=== PATIENT | female | born 1945 | race Caucasian/White ===

== ENCOUNTER 2017-04-04 15:01 | Inpatient (IN) | payer OTHER, MEDICAID ==
[~2017-04-04] VITALS: Ht 162.6 cm; Wt 69.0 kg
[~2017-04-04 15:01] MED LIST: ASPIR 8181 MG PO; ATIVAN0.5 M1 PO; BENECAR; BENICAR HCT1 TA1 PO; CILOSTAZOL100 M1; CILOSTAZOL100 M1 PO; CLOPIDOGREL75 M1 PO; COL100 PO; COUMADIN1 MG; COUMADIN5 MG; ENOXAPARIN60 MG/0.6 SC; LAC PO; LANTUS SOLOS100 U/M1 SC; LEVAQUIN750 MG PO; LEVOFLOXACIN500 M1 PO; LIPI10 PO; LYRICA200 MG PO; LYRICA75 M1 PO; MAC100 PO; MOTRIN800 MG PO; NATURAL IRON65 MG; NORCO1 TA1 PO; NORCO1 TA2 PO; NORCO1 TAB; NOVI SQ; NOVOLOG FLEX100 U/M1 SC; OMEPRAZOLE DR20 M1; OMEPRAZOLE DR20 M1 PO; OXYBUTYNIN5 M1; REG10I IV; REG10I PO; REQUIP0.25 MG PO; REQUIP0.5 MG; REQUIP0.5 MG PO; TOPROL XL25 MG PO; TRAZODONE50 M1; TRAZODONE50 M1 PO
--- NOTE | 2017-04-04 16:31 | NUR ---
DR MEYER AT BEDSIDE FOR MSE
[2017-04-04 17:36] LABS: CALCIUM 9.4 mg/dL (8.5-10.1); CARBON DIOXIDE 25.5 mmol/L (21-32); CHLORIDE SERUM 97 mmol/L (98-107); CREATININE SERUM 1.4 mg/dL (0.6-1.0); GLUCOSE SERUM 407 mg/dL (74-106); POTASSIUM SERUM 4.4 mmol/L (3.5-5.1); SODIUM SERUM 132 mmol/L (136-145)
[2017-04-04 17:44] LABS: microscopic required? YES; urine erythrocyte TRACE (NEGATIVE)
[2017-04-04 17:50] LABS: BASOPHIL % 0.5 % (0-2); PLATELET COUNT 236 x10^3mcL (130-400); RED CELL DISTRIBUTION WIDTH 13.3 % (11.5-14.5)
[2017-04-04 17:52] LABS: ALBUMIN 3.7 g/dL (3.4-5.0); ALKALINE PHOSPHATASE 89 U/L (46-116); ALT/SGPT 18 U/L (14-59); AST/SGOT 13 U/L (15-37); BILIRUBIN TOTAL 0.48 mg/dL (0.20-1.00); TOTAL PROTEIN, SERUM 7.6 g/dL (6.4-8.2)
--- NOTE | 2017-04-04 19:09 | NUR ---
REPORT GIVEN TO TONYA ALEXANDRE RESUMING CARE OF PT AT THIS TIME
--- NOTE | 2017-04-04 19:14 | NUR ---
RECEIVED REPORT FROM JUAN MANUEL ALEXANDRE. PT RESTING IN BED IN A POSITION OF COMFORT REPORTING CHRONIC BACK PAIN IS 9/10 AT THIS TIME. REQUESTING SOCKS TO USE RESTROOM. RESP E/U, NO DISTRESS NOTED. PT AMBULATES WITH STEADY GAIT TO RESTROOM.
--- NOTE | 2017-04-04 21:17 | NUR ---
FAMILY TO BRING MED LIST BACK FOR MED RECONCILIATION.
--- NOTE | 2017-04-04 21:50 | NUR ---
REPORT CALLED TO AKI ALEXANDRE TO ASSUME CARE OF PT POST TRANSFER TO TELE UNIT.
[2017-04-04 21:53] LABS: AMPHETAMINE QUAL UR NONE DETECTED (NEG <=1000)
[2017-04-04 21:59] LABS: T3 TOTAL 0.95 ng/mL
[2017-04-04 22:00] LABS: FREE T4 1.26 ng/dL (0.76-1.46); FREE THYROXINE INDEX 4.1 ug/dL (1.4-4.5); T4(THYROXINE) 10.8 ug/dL (4.7-13.3)
--- NOTE | 2017-04-04 22:09 | NUR ---
REC'D PT FROM ER VIA [facility]. PT IS AAOX4. C/O DIZZINESS AND 7/10 HEADACHE. TELE #16 SR. RESP EVEN AND UNLABORED. NO SOB NOTED. TRACE EDEMA NOTED TO BLE. PT C/O 9/10 UPPER BACK PAIN. IV NOTED TO RAC. INTACT AND PATENT. ORIENTED PT TO CALL LIGHT. BED IN LOWEST POSITION. WILL ENDORSE TO PRIMARY RN.
[2017-04-04 22:13] LABS: CHOLESTEROL/HDL RATIO 2.7; MAGNESIUM 1.8 mg/dL (1.8-2.4); PHOSPHOROUS 3.9 mg/dL (2.5-4.9)
[2017-04-04 22:20] VITALS: BP 155/61
--- NOTE | 2017-04-04 22:50 | NUR ---
REC'D REPORT FROM IZABELA ALEXANDRE. PT AAOX4, SPEECH CLEAR, FOLLOWS COMMANDS. TELE16. DENIES CP, DIZZINESS, OR PALPITATIONS. NO SIGNS OF DISTRESS NOTED. BREATHING EVEN/UNLABORED ON RA. TRACE EDEMA BLE. DENIES ABD PAIN, TENDERNESS, OR N/V. VOIDING FREELY. GEN WEAKNESS. AMB WITH WALKER FOR FAR DISTANCES. SKIN INTACT. IV TO RAC. NS 500 ML BOLUS INFUSING. LEVAQUIN COMPLETED. C/O BACK PAIN 01/05. DID NOT WANT NORCO BC IT UPSETS HER STOMACH. DR. RANDOLPH AT BEDSIDE TO ORDER TORADOL. BS 405. TO COVER PER SLIDING SCALE WITH REG INSULIN PER DR. RANDOLPH. SHE IS TO ENTER ORDERS. HOME MEDS AT BEDSIDE. PT INFORMED NOT TO TAKE ANY MEDS ON HER OWN. MED STAFF TO GIVE MEDICATIONS ONLY. PT VERBALIZED UNDERSTANDING. ORIENTED TO DEVICES AND SURROUNDINGS. CALL LIGHT WITHIN REACH, BED AT LOWEST POSITION. WILL CONTINUE TO MONITOR.
--- NOTE | 2017-04-04 23:41 | NUR ---
CALLED PHARMACY TO HAVE MEDS VERIFIED.
--- NOTE | 2017-04-05 01:07 | NUR ---
PT STILL C/O BACK PAIN. NORCO GIVEN PER ORDER. 10 UNITS REG INSULIN GIVEN WITH SANDWICH. WILL CONTINUE TO MONITOR.
--- NOTE | 2017-04-05 02:35 | NUR ---
PT RESTING IN BED WITH EYES CLOSED. NO SIGNS OF DISTRESS NOTED. BREATHING EVEN/UNLABORED ON RA. CALL LIGHT WITHIN REACH, BED AT LOWEST POSITION. WILL CONTINUE TO MONITOR.
[2017-04-05 03:06] LABS: CALCIUM 8.5 mg/dL (8.5-10.1); CARBON DIOXIDE 24.6 mmol/L (21-32); CHLORIDE SERUM 103 mmol/L (98-107); CREATININE SERUM 1.4 mg/dL (0.6-1.0); GLUCOSE SERUM 285 mg/dL (74-106); POTASSIUM SERUM 3.6 mmol/L (3.5-5.1); SODIUM SERUM 135 mmol/L (136-145)
[2017-04-05 03:20] LABS: PLATELET COUNT 197 x10^3mcL (130-400); RED CELL DISTRIBUTION WIDTH 12.3 % (11.5-14.5)
[2017-04-05 03:40] LABS: BASOPHIL % 2.6 % (0-2)
--- NOTE | 2017-04-05 05:56 | NUR ---
MARIO AND REQUIP TAKEN FROM PT'S HOME MEDS. WILL GIVE TO PHARMACY FOR VERIFICATION.
--- NOTE | 2017-04-05 06:09 | NUR ---
PT RESTING IN BED WITH EYES CLOSED. AWAKENS EASILY. NO COMPLAINTS AT THIS TIME. BREATHING EVEN/UNLABORED ON RA. BS 89, NO COVERAGE. DUE MEDS GIVEN. WILL ENDORSE TO DAY NURSE.
[2017-04-05 07:01] VITALS: BP 124/68
--- NOTE | 2017-04-05 07:10 | NUR ---
HOME MEDS BROUGHT DOWN TO PHARMACY FOR VERIFICATION.
--- NOTE | 2017-04-05 07:12 | NUR ---
PT RECEIVED AND SEEN. PT AAOX4. APPEARS CALM. TELE [address] SHOWING SR. RESPIRATIONS EVEN AND UNLABORED ON ROOM AIR. PATIENT STATES SHE HAS SOME NEUROPATHY TO HER HANDS AND LEGS, STATES THE PAIN IS TOLERABLE AT THIS TIME. BS ACTIVE. PATIENT IS AMBULATORY. SKIN INTACT. NS INFUSING IN RAC PER ORDER, APPEARS WNL. CALL LIGHT WITHIN REACH. WILL CONTINUE TO MONITOR. ALL SAFETY MEASURES IN PLACE.
[2017-04-05 09:04] VITALS: BP 134/51
[2017-04-05 12:52] VITALS: Ht 162.6 cm; Wt 69.0 kg
[2017-04-05 13:50] VITALS: BP 133/55
--- NOTE | 2017-04-05 14:07 | NUR ---
PATIENT AMBULATED A FULL CIRCUIT AROUND THE 2N AND 2S FLOORS. TOLERATED ACTIVITY WELL, PATIENT HAD EVEN AND BALANCED GAIT. PT DENIES PAIN AT THIS TIME. WILL CONTINUE TO MONITOR. CALL LIGHT WITHIN REACH.
[2017-04-05 18:10] VITALS: BP 134/44
--- NOTE | 2017-04-05 19:25 | NUR ---
REPORT GIVEN TO NIGHT NURSE. AT THIS TIME THE PATIENT IS RESTING IN BED. NO SIGNS OF ACUTE DISTRESS. TELE MONITOR IN PLACE. IV INFUSING PER ORDER. PT CONTINUES TO REFUSE SCDS. ALL SAFETY MEASURES IN PLACE.
--- NOTE | 2017-04-05 19:39 | NUR ---
RECEIVED PATIENT RESTING WITH NO SIGN OF PAIN AND DISCOMFORT THIS TIME. TELE# 16, NSR ON MONITOR, DENIES CHESTPAIN. BREATHING EASY AND NONLABOR SATTING AT 98% RA. ABDOMEN ROUND ,SOFT AND NON TENDER WITH ACTIVE BS. IV TO RAC INTACT AND INFUSING WELL. WILL CONTINUE TO MONITOR. CALL LIGHT WITHIN REACH.
[2017-04-05 21:11] VITALS: BP 120/55
--- NOTE | 2017-04-06 00:13 | NUR ---
SLEEPING THIS TIME BREATHING EASY AND NONLABOR. WILL CONTINUE TO MONITOR.
--- NOTE | 2017-04-06 05:12 | NUR ---
CHECKED AT INTERVALS FOR NEEDS AND SAFETY. ALL NEEDS ATTENDED.
[2017-04-06 05:26] VITALS: BP 100/43
--- NOTE | 2017-04-06 07:02 | NUR ---
PT RECEIVED AND SEEN. PT IS AAOX4. TELE MONITOR IN PLACE. RESPIRATIONS EVEN AND UNLABORED ON ROOM AIR. APPEARS CALM. NO SIGNS OF ACUTE DISTRESS. PT IS REFUSING SCDS AT THIS TIME, PT WAS ENCOURAGED TO AMBULATE OFTEN. IV INFUSING PER ORDER, APPEARS WNL. SKIN INTACT. CALL LIGHT WITHIN REACH. ALL SAFETY MEASURES IN PLACE. WILL CONTINUE TO MONITOR.
[2017-04-06 07:33] LABS: CALCIUM 8.5 mg/dL (8.5-10.1); CARBON DIOXIDE 24.3 mmol/L (21-32); CHLORIDE SERUM 106 mmol/L (98-107); GLUCOSE SERUM 110 mg/dL (74-106); POTASSIUM SERUM 3.7 mmol/L (3.5-5.1); SODIUM SERUM 139 mmol/L (136-145)
[2017-04-06 07:34] LABS: BASOPHIL % 0.6 % (0-2); PLATELET COUNT 211 x10^3mcL (130-400); RED CELL DISTRIBUTION WIDTH 13.4 % (11.5-14.5)
[2017-04-06 08:50] VITALS: BP 102/44
--- NOTE | 2017-04-06 09:01 | NUR ---
NOTIFIED DR OLIVEIRA OF PT BLOOD PRESSURE THIS MORNING. NO C/O DIZZINESS AT THIS TIME FROM PT. WILL MONITOR FOR NEW ORDERS. CALL LIGHT WITHIN REACH.
--- NOTE | 2017-04-06 09:20 | NUR ---
NEW 20G IV INSERTED IN LFA AT THIS TIME. PATIENT TOLERATED WELL. IV PATENT AND INFUSING WELL, APPEARS WNL. IV IN RAC REMOVED WITH CATHETER TIP INTACT. PT TOLERATED WELL.
[2017-04-06 09:55] VITALS: BP 125/55
--- NOTE | 2017-04-06 10:37 | NUR ---
DR JONES AND MEDICAL TEAM VISITED PATIENT AT BEDSIDE THIS MORNING. UPDATED PT ON PLAN OF CARE AND ANSWERED ALL QUESTIONS. PATIENT AGREEABLE TO PLAN OF CARE.
[2017-04-06] MEDS ORDERED: BENICAR HCT1 TA1 PO (14:28)
[2017-04-06] MEDS ORDERED: TOPROL XL25 MG PO (14:28)
[2017-04-06] MEDS ORDERED: LYRICA200 MG PO (14:29)
[2017-04-06] MEDS ORDERED: TRAZODONE50 M1 PO (14:30)
[2017-04-06] MEDS ORDERED: NOVI SQ (14:48)
[2017-04-06] MEDS ORDERED: LANTUS SOLOS100 U/M1 SC (14:49)
[2017-04-06] MEDS ORDERED: NORCO1 TA2 PO (14:50)
[2017-04-06] MEDS ORDERED: LAC PO (15:00)
[2017-04-06] MEDS ORDERED: LEVOFLOXACIN500 M1 PO (15:01)
[2017-04-06 15:39] VITALS: BP 142/58
[2017-04-06 16:05] VITALS: BP 113/50
--- NOTE | 2017-04-06 17:15 | NUR ---
DISCHARGE TEACHING PERFORMED. PATIENT RECEIVED DISCHARGE PACKET AND WRITTEN PRESCRIPTIONS. PT VERBALIZED UNDERSTANDING. ALL QUESTIONS ANSWERED. IV REMOVED FROM LFA WITH CATHETER TIP INTACT, SITE COVERED WITH STERILE BANDAGE. NO BLEEDING NOTED. TELE MONITOR RETURNED.
--- NOTE | 2017-04-06 17:40 | NUR ---
PT HAS BEEN DISCHARGED. ALL PERSONAL BELONGINGS WERE REMOVED FROM ROOM INCLUDING DISCHARGE PACKET AND PRESCRIPTIONS FOR MEDICINE. PT HAS BEEN ESCORTED OUT BY HOSPITAL STAFF MEMBER AND LEFT WITH HER FAMILY.
== END 2017-04-06 17:39 | disposition home or self-care (01) | DRG 689 ==
LOC: ED 15:01 → DU 20:46
PROVIDERS: Emergency Medicine; Student in an Organized Health Care Education/Training Program; ADMIT Family Medicine
DX: N39.0 Urinary tract infection, site not specified (principal); G93.41 Metabolic encephalopathy; N17.0 Acute kidney failure with tubular necrosis; E87.1 Hypo-osmolality and hyponatremia; B96.20 Unspecified Escherichia coli [E. coli] as the cause of diseases classified elsewhere; E11.51 Type 2 diabetes mellitus with diabetic peripheral angiopathy without gangrene; E11.65 Type 2 diabetes mellitus with hyperglycemia; E11.42 Type 2 diabetes mellitus with diabetic polyneuropathy; I10 Essential (primary) hypertension; G47.00 Insomnia, unspecified; D64.9 Anemia, unspecified; Z68.26 Body mass index [BMI] 26.0-26.9, adult; Z95.1 Presence of aortocoronary bypass graft; Z16.24 Resistance to multiple antibiotics
CPT/HCPCS: 83880; 84439; J0696; J1815; J1885; J1956; J3490; J7030; J7040; Q0092

== ENCOUNTER 2017-05-10 09:12 | Emergency (ER) | payer OTHER, MEDICAID ==
[~2017-05-10] VITALS: Ht 162.6 cm; Wt 67.6 kg
[2017-05-10 09:17] VITALS: Ht 162.6 cm; Wt 67.6 kg
[2017-05-10 10:29] VITALS: BP 140/63
== END 2017-05-10 10:29 | disposition home or self-care (01) ==
LOC: ED 09:12
DX: S05.31XA Ocular laceration without prolapse or loss of intraocular tissue, right eye, initial encounter (principal); I10 Essential (primary) hypertension; E11.40 Type 2 diabetes mellitus with diabetic neuropathy, unspecified; G89.29 Other chronic pain; M79.606 Pain in leg, unspecified; Z88.0 Allergy status to penicillin; Z91.041 Radiographic dye allergy status; W01.0XXA Fall on same level from slipping, tripping and stumbling without subsequent striking against object, initial encounter; Y93.89 Activity, other specified; Y92.89 Other specified places as the place of occurrence of the external cause; Y99.8 Other external cause status
CPT/HCPCS: 90715; J2001

== ENCOUNTER 2017-06-03 10:02 | Emergency (ER) | payer OTHER, MEDICAID ==
[~2017-06-03] VITALS: Ht 162.6 cm; Wt 68.0 kg
[2017-06-03 10:22] VITALS: BP 126/63; Ht 162.6 cm; Wt 68.0 kg
== END 2017-06-03 12:59 | disposition left against medical advice (07) ==
LOC: ED 10:02
DX: R11.2 Nausea with vomiting, unspecified (principal); Z53.21 Procedure and treatment not carried out due to patient leaving prior to being seen by health care provider

== ENCOUNTER 2018-02-17 13:53 | Emergency (ER) | payer OTHER, MEDICAID ==
[~2018-02-17] VITALS: Ht 157.5 cm; Wt 67.6 kg
[2018-02-17 13:55] VITALS: Ht 157.5 cm; Wt 67.6 kg
[2018-02-17 14:33] LABS: CALCIUM 9.1 mg/dL (8.5-10.1); CARBON DIOXIDE 26.5 mmol/L (21-32); CHLORIDE SERUM 100 mmol/L (98-107); GLUCOSE SERUM 296 mg/dL (74-106); SODIUM SERUM 134 mmol/L (136-145)
[2018-02-17 14:36] LABS: BASOPHIL % 0.6 % (0-2); PLATELET COUNT 185 x10^3mcL (130-400); RED CELL DISTRIBUTION WIDTH 14.1 % (11.5-14.5)
[2018-02-17 14:38] LABS: ALBUMIN 3.7 g/dL (3.4-5.0); ALKALINE PHOSPHATASE 78 U/L (46-116); ALT/SGPT 21 U/L (14-59); AST/SGOT 17 U/L (15-37); BILIRUBIN TOTAL 0.5 mg/dL (0.20-1.00); TOTAL PROTEIN, SERUM 7.7 g/dL (6.4-8.2)
[2018-02-17 16:13] VITALS: BP 122/55
== END 2018-02-17 16:11 | disposition home or self-care (01) ==
LOC: ED 13:53
PROVIDERS: Emergency Medicine
DX: S20.211A Contusion of right front wall of thorax, initial encounter (principal); G89.29 Other chronic pain; M79.606 Pain in leg, unspecified; R42 Dizziness and giddiness; I10 Essential (primary) hypertension; E11.9 Type 2 diabetes mellitus without complications; Z88.0 Allergy status to penicillin; Z88.8 Allergy status to other drugs, medicaments and biological substances; V49.88XA Car occupant (driver) (passenger) injured in other specified transport accidents, initial encounter; Y93.I9 Activity, other involving external motion; Y92.413 State road as the place of occurrence of the external cause; Y99.8 Other external cause status
CPT/HCPCS: 36415

== ENCOUNTER 2018-11-07 10:12 | Emergency (ER) | payer OTHER, MEDICAID ==
[~2018-11-07] VITALS: Ht 162.6 cm; Wt 71.7 kg
[2018-11-07 10:18] VITALS: Ht 162.6 cm; Wt 71.7 kg
[2018-11-07 11:21] LABS: CALCIUM 8.9 mg/dL (8.5-10.1); CARBON DIOXIDE 24.8 mmol/L (21-32); CHLORIDE SERUM 98 mmol/L (98-107); CREATININE SERUM 1.6 mg/dL (0.6-1.0); GLUCOSE SERUM 228 mg/dL (74-106); POTASSIUM SERUM 4.8 mmol/L (3.5-5.1); SODIUM SERUM 133 mmol/L (136-145)
[2018-11-07 11:26] LABS: ALBUMIN 3.9 g/dL (3.4-5.0); ALKALINE PHOSPHATASE 49 U/L (46-116); ALT/SGPT 21 U/L (14-59); AST/SGOT 14 U/L (15-37); BILIRUBIN TOTAL 0.4 mg/dL (0.20-1.00); LIPASE 128 IU/L (73-393); TOTAL PROTEIN, SERUM 7.5 g/dL (6.4-8.2)
[2018-11-07 11:28] LABS: microscopic required? YES; urine erythrocyte NEGATIVE (NEGATIVE)
[2018-11-07 11:29] LABS: BASOPHIL % 0.6 % (0-2); PLATELET COUNT 180 x10^3mcL (130-400); RED CELL DISTRIBUTION WIDTH 13.9 % (11.5-14.5)
[2018-11-07 14:05] VITALS: BP 136/60
== END 2018-11-07 14:05 | disposition home or self-care (01) ==
LOC: ED 10:12
PROVIDERS: Emergency Medicine
DX: N12 Tubulo-interstitial nephritis, not specified as acute or chronic (principal); I10 Essential (primary) hypertension; I82.409 Acute embolism and thrombosis of unspecified deep veins of unspecified lower extremity; E11.40 Type 2 diabetes mellitus with diabetic neuropathy, unspecified; Z88.0 Allergy status to penicillin; Z88.8 Allergy status to other drugs, medicaments and biological substances; Z95.1 Presence of aortocoronary bypass graft
CPT/HCPCS: 82962; J1885; J1956; J2405; Q0092

== ENCOUNTER 2020-06-29 12:36 | Emergency (ER) | payer OTHER, MEDICAID ==
[~2020-06-29] VITALS: Ht 162.6 cm; Wt 76.7 kg
[~2020-06-29 12:36] MED LIST changes: +ASPIRIN ADULT L81 M3 PO; +CARVEDILOL ER40 MG PO; +COLACE100 MG PO; +ELIQUIS5 MG PO; +FERROUS SULFAT325 M2 PO; +HIPREX1 GM PO; +HORIZANT300 MG PO; +PANTOPRAZOLE SO40 M1 PO; +ROSUVASTATIN CA40 MG PO; +ROXICODONE5 MG PO; +VALSARTAN320 MG PO; +ZONTIVITY2.08 MG PO
[2020-06-29 12:42] VITALS: Ht 162.6 cm; Wt 76.7 kg
[2020-06-29 13:41] LABS: BASOPHIL % 1.2 % (0.2-1.3); PLATELET COUNT 330 x10^3mcL (179-408)
[2020-06-29 13:46] LABS: RED CELL DISTRIBUTION WIDTH 16.1 % (12.3-17.7)
[2020-06-29 13:57] LABS: ALKALINE PHOSPHATASE 81 U/L (46-116); ALT/SGPT 48 U/L (14-59); AST/SGOT 28 U/L (15-37); BILIRUBIN TOTAL 0.5 mg/dL (0.20-1.00); CARBON DIOXIDE 25.3 mmol/L (21-32); CHLORIDE SERUM 95 mmol/L (98-107); CREATININE SERUM 0.8 mg/dL (0.6-1.0); GLUCOSE SERUM 295 mg/dL (74-106); LIPASE 121 IU/L (73-393); POTASSIUM SERUM 3.9 mmol/L (3.5-5.1); SODIUM SERUM 132 mmol/L (136-145); TOTAL PROTEIN, SERUM 7.4 g/dL (6.4-8.2)
[2020-06-29 14:05] LABS: CALCIUM 9.4 mg/dL (8.5-10.1)
[2020-06-29] MEDS ORDERED: MIRALAX17 GM PO (15:27)
[2020-06-29] MEDS ORDERED: ZOF4 PO (15:27)
[2020-06-29] MEDS ORDERED: ACETAMINOPHEN500 M5 PO (15:27)
[2020-06-29 16:25] VITALS: BP 193/63
== END 2020-06-29 16:25 | disposition home or self-care (01) ==
LOC: ED 12:36
PROVIDERS: Emergency Medicine
DX: K59.00 Constipation, unspecified (principal); Z20.822 Contact with and (suspected) exposure to COVID-19; R11.10 Vomiting, unspecified; D64.9 Anemia, unspecified; I10 Essential (primary) hypertension; E11.9 Type 2 diabetes mellitus without complications; Z88.0 Allergy status to penicillin; Z91.041 Radiographic dye allergy status
CPT/HCPCS: 83880; J2270; J2405; J2765; J7030